=== PATIENT | male | born 1980 | race Caucasian/White ===

== ENCOUNTER 2017-04-06 14:27 | Emergency (ER) | payer MEDICAID ==
--- NOTE | 2017-04-06 15:05 | ED Physician Documentation ---
PD HPI MAJOR TRAUMA - Stated complaint Stated Complaint: CHEST LAC - Chief complaint Chief Complaint: Trauma Ch/Bk - History obtained from History obtained from: Patient - History of Present Illness Mechanism of injury: Other (He was chopping wood at home just prior to arrival and a piece of shrapnel came off the wedge and impacted him in the anterior chest just to the left of midline with a lot of bleeding, tetanus is up-to-date. ) Review of Systems Constitutional: reports: Reviewed and negative Nose: reports: Reviewed and negative Throat: reports: Reviewed and negative PD PAST MEDICAL HISTORY - Past Medical History Past Medical History: No Psych: ADD/ADHD - Past Surgical History Past Surgical History: Yes Ortho: Arthroscopic surgery - Present Medications Home Medications: Ambulatory Orders Medication Instructions Recorded Confirmed Cephalexin [Keflex] 500 mg PO QID #20 capsule 04/06/17 - Allergies Allergies/Adverse Reactions: Allergies Allergy/AdvReac Type Severity Reaction Status Date / Time No Known Drug Allergies Allergy Verified 05/04/16 20:02 - Social History Does the pt smoke?: Yes Smoking Status: Current every day smoker Does the pt drink ETOH?: No Does the pt have substance abuse?: No - Immunizations Immunizations are current?: Yes - POLST Patient has POLST: No PD ED PE NORMAL - Vitals Vital signs reviewed: Yes - General General: Alert and oriented X 3, No acute distress - Neck Neck: Supple, no meningeal sign, No bony TTP - Cardiac Cardiac: RRR, No murmur - Respiratory Respiratory: No respiratory distress, Clear bilaterally - Derm Derm: Other (There is a small puncture wound in the anterior chest wall just to the left of the upper sternum that is hemostatic with potential palpable foreign body on initial examination.) - Neuro Neuro: Alert and oriented X 3, Normal speech - Psych Psych: Normal mood, Normal affect Results - Vitals Vitals: Vital Signs - 24 hr 04/06/17 14:30 Temperature 36.9 C Heart Rate 93 Respiratory 22 Rate Blood Pressure 123/75 O2 Saturation 98 Oxygen O2 Source Room air - Rads (name of study) 2v chest Radiology: EMP read contemporaneously (5 x 3 mm metallic foreign body in the anterior chest wall) Procedures - Laceration (location) Chest wall Length in cm: 1 Wound type: Linear, Other (He was prepped and draped and locally infiltrated with buffered lidocaine. I spent probably 20-30 minutes attempting to locate and remove the metallic foreign body without success.) Wound Preparation: Chlorhexadine Skin layer closure: Nylon, Size #-0 - enter number (4-0), Sutures - enter # (3) Other: Patient tolerated well, No complications, Neurovascular intact, Tetanus UTD Complexity: Simple PD MEDICAL DECISION MAKING - ED course ED course: Attempts were made to remove the metallic foreign body however it was quite small and unable to be located during attempts and given its small size should not give him any chronic issues. Departure - Departure Disposition: 01 Home, Self Care Clinical Impression: Laceration - injury, Foreign body in subcutaneous tissue Condition: Good Record reviewed to determine appropriate education?: Yes Instructions: ED Foreign Body Soft Tissue Prescriptions: Cephalexin [Keflex] 500 mg PO QID #20 capsule Comments: The piece of metal is quite small, which explained why it was so hard to find. It should not give you any permanent issues but do mention this before any MRI exams. Return for signs of infection including redness, swelling, drainage, fever. Otherwise see her doctor in 10 days for suture removal.
[2017-04-06] MEDS ORDERED: BUFFERED LIDOCAINE 10 ML SYRINGE ONE (15:11)
--- NOTE | 2017-04-06 15:17 | XRAY Preliminary Report ---
Exam: XR Chest 2 View PA/LAT IMPRESSION: 1. No acute pulmonary consolidation. 2. Metal density projects over the medial left chest measuring 5 x 3 mm. This is difficult to localiz e in the lateral view although this may be an anterior foreign body considering the obscuring soft ti ssue density at this level. [facility] SITE ID: [id number]
--- NOTE | 2017-04-06 15:20 | XRAY Report ---
EXAM: CHEST RADIOGRAPHY EXAM DATE: 04/06/2017 03:03 PM. CLINICAL HISTORY: Hit in chest by metal object. COMPARISON: None. TECHNIQUE: 2 views. FINDINGS: Lungs/Pleura: No focal opacities evident. No pleural effusion. No pneumothorax. Normal volumes. Mediastinum: Heart and mediastinal contours are unremarkable. Other: Right nipple ring is present. Metal density projects over the medial left chest measuring 5 x 3 mm. IMPRESSION: 1. No acute pulmonary consolidation. 2. Metal density projects over the medial left chest measuring 5 x 3 mm. This is difficult to localiz e in the lateral view although this may be an anterior foreign body considering the obscuring soft ti ssue density at this level. [facility] Referring Provider Line: [phone] SITE ID: [id number]
[2017-04-06] MEDS ORDERED: CEPHALEXIN 250 MG CAPSULE PO STA (15:30)
[2017-04-06] MEDS ORDERED: CEPHALEXIN 250 MG CAPSULE PO ONE (15:41)
[2017-04-06 15:51] VITALS: BP 135/69
== END 2017-04-06 15:49 | disposition home or self-care (01) ==
LOC: ED 14:27
DX: S21.122A Laceration with foreign body of left front wall of thorax without penetration into thoracic cavity, initial encounter (principal); W20.8XXA Other cause of strike by thrown, projected or falling object, initial encounter; Y93.89 Activity, other specified; F17.200 Nicotine dependence, unspecified, uncomplicated
CPT/HCPCS: 12001; 71020; 99283; A9270

== ENCOUNTER 2017-04-17 23:36 | Emergency (ER) | payer MEDICAID ==
[2017-04-17 23:46] VITALS: BP 128/83
--- NOTE | 2017-04-17 23:57 | ED Physician Documentation ---
PD HPI WOUND RECHECK - Stated complaint Stated Complaint: SUTURE REMOVAL - Chief complaint Chief Complaint: General - Histroy obtained from History obtained from: Patient - History of Present Illness Location: Chest Associated symptoms: No: Fever, Redness, Swelling, Drainage Recently seen: Emergency Dept Review of Systems Constitutional: denies: Fever, Chills PD PAST MEDICAL HISTORY - Past Medical History Psych: ADD/ADHD - Past Surgical History Past Surgical History: Yes Ortho: Arthroscopic surgery - Present Medications Home Medications: Ambulatory Orders Medication Instructions Recorded Confirmed Cephalexin [Keflex] 500 mg PO QID #20 capsule 04/06/17 - Allergies Allergies/Adverse Reactions: Allergies Allergy/AdvReac Type Severity Reaction Status Date / Time No Known Drug Allergies Allergy Verified 05/04/16 20:02 - Social History Does the pt smoke?: Yes Smoking Status: Current every day smoker Does the pt drink ETOH?: No Does the pt have substance abuse?: No - Immunizations Immunizations are current?: Yes - POLST Patient has POLST: No PD ED PE NORMAL - Vitals Vital signs reviewed: Yes - General General: Alert and oriented X 3, No acute distress, Well developed/nourished - Respiratory Respiratory: Other (sternal chest area with healing wound, [address] No signs of infection. ) Results - Vitals Vitals: Vital Signs - 24 hr 04/17/17 23:43 Temperature 36.6 C Heart Rate 83 Respiratory 16 Rate Blood Pressure 128/83 H O2 Saturation 100 Oxygen O2 Source Room air PD MEDICAL DECISION MAKING - ED course Complexity details: considered differential (sutures removed by nursing without problems. ), d/w patient Departure - Departure Disposition: 01 Home, Self Care Clinical Impression: Encounter for removal of sutures Condition: Stable Record reviewed to determine appropriate education?: Yes Comments: Continue usual wound care until fully healed. Discharge Date/Time: 04/18/17 00:26
== END 2017-04-18 00:26 | disposition home or self-care (01) ==
LOC: ED 23:36
DX: S21.119D Laceration without foreign body of unspecified front wall of thorax without penetration into thoracic cavity, subsequent encounter (principal); X58.XXXD Exposure to other specified factors, subsequent encounter
CPT/HCPCS: 99283

== ENCOUNTER 2018-12-30 21:22 | Emergency (ER) | payer MEDICAID ==
[2018-12-30 21:43] VITALS: BP 129/80
--- NOTE | 2018-12-30 22:34 | ED Physician Documentation ---
History of Present Illness - Stated complaint Stated Complaint: RT ELBOW PAIN - Chief complaint Chief Complaint: General - History obtained from History obtained from: Patient - History of Present Illness Timing: Other (right elbow pain x 3 days) Pain level now: 3 Improved by: rest Worsened by: movement, palpation - Additonal information Additional information: patient's chief complaint is 3 days of right elbow pain, atraumatic. Gradual onset, constant, and steadily worsening. Pain and tenderness is worst at lateral aspect of right elbow. Pain radiates down radial aspect of FA to wrist but not to hand. Also worse with movement involving the right elbow. He also is concerned that metallic FB in his chest wall might have migrated, as he usually is able to palpate it but noticed recently he can no longer palpate it. He says there is a tentative plan to remove it under fluoroscopy at [facility]. Review of Systems Constitutional: denies: Fever Cardiac: denies: Chest pain / pressure Respiratory: denies: Dyspnea, Cough Skin: denies: Rash Musculoskeletal: reports: Extremity pain, Joint pain. denies: Neck pain, Back pain, Extremity swelling, Joint swelling Neurologic: denies: Focal weakness, Numbness PD PAST MEDICAL HISTORY - Past Medical History Past Medical History: Yes Psych: ADD/ADHD Musculoskeletal: Chronic back pain Other Past Medical History: Degenerative disk disease. - Past Surgical History Past Surgical History: Yes Ortho: Arthroscopic surgery - Present Medications Home Medications: Ambulatory Orders Medication Instructions Recorded Confirmed Ibuprofen 600 mg PO Q6HR PRN #20 tablet 12/30/18 - Allergies Allergies/Adverse Reactions: Allergies Allergy/AdvReac Type Severity Reaction Status Date / Time No Known Drug Allergies Allergy Verified 12/30/18 23:01 - Social History Does the pt smoke?: Yes Smoking Status: Current every day smoker Does the pt drink ETOH?: No Does the pt have substance abuse?: No - Immunizations Immunizations are current?: Yes - POLST Patient has POLST: No PD ED PE NORMAL - Vitals Vital signs reviewed: Yes - General General: Alert and oriented X 3, No acute distress, Well developed/nourished - Respiratory Respiratory: No respiratory distress, Clear bilaterally - Derm Derm: Normal color, Warm and dry, No rash - Extremities Extremities: No edema - Neuro Neuro: No motor deficit, No sensory deficit - Free text exam Free text exam: no chest wall tenderness. no visible or palpable mass/FB PD ED PE EXPANDED - Extremities Extremities: Tenderness (TTP directly over right lateral epicondyle. no swelling, no erythema, no abnormal tactile heat/warmth. ROM is intact in right elbow, although increased discomfort/pain with full extension and with supination (prefers to keep the elbow flexed and pronated)), Motor intact, Sensory intact, Vascular intact Results - Vitals Vitals: Vital Signs - 24 hr 12/30/18 21:38 Temperature 37.0 C Heart Rate 69 Respiratory 16 Rate Blood Pressure 129/80 O2 Saturation 98 Oxygen O2 Source Room air - Rads (name of study) chest xray Radiology: Prelim report reviewed, See rad report PD MEDICAL DECISION MAKING - ED course Complexity details: reviewed results, re-evaluated patient, considered differential, d/w patient Departure - Departure Disposition: 01 Home, Self Care Clinical Impression: Right elbow tendonitis Foreign body of chest wall Qualifiers: Encounter type: initial encounter Laterality: left Qualified Code(s): S20.352A - Superficial foreign body of left front wall of thorax, initial encounter Condition: Good Instructions: ED Epicondylitis Lateral Elbow Follow-Up: Óscar Hdez MD [Provider Admit Priv/Credential] - Prescriptions: Ibuprofen 600 mg PO Q6HR PRN #20 tablet PRN Reason: Pain Forms: Activity restrictions Discharge Date/Time: 12/31/18 00:03
--- NOTE | 2018-12-30 23:23 | XRAY Report ---
Reason: chest pain, FB Procedure Date: 12/30/2018 Accession Number: [id number] / [id number] Procedure: XR - Chest 2 View X-Ray CPT Code: 51326 FULL RESULT: EXAM: CHEST RADIOGRAPHY EXAM DATE: 12/30/2018 10:59 PM. CLINICAL HISTORY: Chest pain, foreign body. History of metal foreign body in chest. COMPARISON: CHEST 2 VIEW PA/LAT 04/06/2017 2:56 PM. TECHNIQUE: 2 views. FINDINGS: Lungs/Pleura: No focal opacities evident. No pleural effusion. No pneumothorax. Normal volumes. Mediastinum: Heart and mediastinal contours are unremarkable. Other: Small metallic density that projects at the left upper lobe medial aspect measuring 6 mm, appears unchanged from the prior, not definitely seen on the lateral view so the location is not certain. IMPRESSION: No acute cardiopulmonary disease seen. Small metallic density that projects at the left upper lobe medial aspect measuring 6 mm, appears unchanged from the prior, not definitely seen on the lateral view so the location is not certain. [facility]
[2018-12-30] MEDS ORDERED: IBUPROFEN 600 MG TABLET PO STA (23:50)
== END 2018-12-31 00:03 | disposition home or self-care (01) ==
LOC: ED 21:22
DX: M77.9 Enthesopathy, unspecified (principal); Z18.10 Retained metal fragments, unspecified; F17.200 Nicotine dependence, unspecified, uncomplicated
CPT/HCPCS: 71046; 99283; A9270

== ENCOUNTER 2019-01-21 08:10 | Emergency (ER) | payer MEDICAID ==
[2019-01-21 08:24] VITALS: BP 127/85
--- NOTE | 2019-01-21 08:32 | ED Physician Documentation ---
History of Present Illness - Stated complaint Stated Complaint: ARM PX - Chief complaint Chief Complaint: Ext Problem - History obtained from History obtained from: Patient - Additonal information Additional information: Patient is a right-handed 38-year-old male with history of right elbow tendinitis presenting with right wrist discomfort. 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 Patient sometimes notices a clicking noise with movement. Patient does report that he awoke this morning with numbness to his hand, which is now resolved. Patient does not believe that he slept in a strange position or on top of his arm/hand. Patient denies joint swelling, erythema, or other skin changes. No other inciting incident, injury, or trauma. No other improving or worsening factors noted. Review of Systems Skin: denies: Rash Musculoskeletal: reports: Extremity pain, Joint pain. denies: Joint swelling Neurologic: reports: Numbness. denies: Focal weakness PD PAST MEDICAL HISTORY - Past Medical History Past Medical History: Yes Psych: ADD/ADHD Musculoskeletal: Chronic back pain - Past Surgical History Past Surgical History: Yes Ortho: Arthroscopic surgery - Present Medications Home Medications: Ambulatory Orders Medication Instructions Recorded Confirmed No Known Home Medications 01/21/19 01/21/19 - Allergies Allergies/Adverse Reactions: Allergies Allergy/AdvReac Type Severity Reaction Status Date / Time No Known Drug Allergies Allergy Verified 01/21/19 08:24 - Social History Does the pt smoke?: Yes Smoking Status: Current every day smoker Does the pt drink ETOH?: No Does the pt have substance abuse?: No - Immunizations Immunizations are current?: Yes - POLST Patient has POLST: No PD ED PE NORMAL - Vitals Vital signs reviewed: Yes - General General: Alert and oriented X 3, No acute distress, Well developed/nourished - HEENT HEENT: Atraumatic, Moist mucous membranes - Cardiac Cardiac: Strong equal pulses, Other (Cap refill brisk) - Respiratory Respiratory: No respiratory distress - Derm Derm: Normal color, Warm and dry, No rash - Extremities Extremities: No deformity, No tenderness to palpate, No edema, Other (Right upper extremity without deformity, bony tenderness, change in sensation/strength/range of motion or other overlying skin changes or joint swelling) - Neuro Neuro: Alert and oriented X 3, No motor deficit, No sensory deficit - Psych Psych: Normal mood, Normal affect Results - Vitals Vitals: Vital Signs - 24 hr 01/21/19 08:11 Temperature 36.5 C Heart Rate 68 Respiratory 16 Rate Blood Pressure 127/85 H O2 Saturation 99 Oxygen O2 Source Room air PD MEDICAL DECISION MAKING - ED course Complexity details: reviewed old records, considered differential, d/w patient, d/w family ED course: Patient has history of right elbow tendinitis which has moderately improved since his last visit. Patient now complaining of right wrist pain without sensation loss, strength loss, range of motion change. No specific trauma and have low suspicion for bony abnormalities including fracture or dislocation. Offered x-ray, which patient declined.No sign of gout, joint infection, cellulitis, abscess, lymphangitis or other infectious properties. 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 Discussed recommendations, supportive cares, return precautions, and follow-up. Work note provided. Patient voiced understanding and is comfortable with discharge plan. Departure - Departure Disposition: 01 Home, Self Care Clinical Impression: Tendonitis Condition: Good Instructions: Tendonitis and Tenosynovitis Follow-Up: Óscar Hdez MD [Provider Admit Priv/Credential] - Comments: Recommend avoidance of manual labor and heavy lifting, as well as repetitive motions. Recommend ice, elevation and ibuprofen/Tylenol. Please follow-up with your primary care physician or orthopedic surgery. Return to ED sooner if experience new injury or worsening symptoms. Forms: Activity restrictions
== END 2019-01-21 08:38 | disposition home or self-care (01) ==
LOC: ED 08:10
DX: M77.9 Enthesopathy, unspecified (principal); M25.531 Pain in right wrist; F17.200 Nicotine dependence, unspecified, uncomplicated
CPT/HCPCS: 99282

== ENCOUNTER 2019-09-22 18:15 | Emergency (ER) | payer MEDICAID ==
[2019-09-22 18:24] VITALS: BP 135/82
[2019-09-22 18:44] LABS: BASOPHILS % (AUTO) 0.2 %; EOSINOPHILS # (AUTO) 0.3 10^3/uL (0.0-0.7); EOSINOPHILS % (AUTO) 2.5 %; HGB - HEMOGLOBIN 14.3 g/dL (14.0-18.0); LYMPHOCYTES % (AUTO) 18.7 %; MEAN CORPUSCULAR HEMOGLOBIN 30.6 pg (27.0-31.0); MEAN CORPUSCULAR HGB CONC 33.8 g/dL (32.0-36.0); MEAN CORPUSCULAR VOLUME 90.6 fL (80.0-94.0); MEAN PLATELET VOLUME 9.6 fL (7.4-11.4); MONOCYTES % (AUTO) 9.2 %; NEUTROPHILS # (AUTO) 7.5 10^3/uL (1.5-6.6); PLT - PLATELET COUNT 268 10^3/uL (130-450); RED BLOOD COUNT 4.67 10^6/uL (4.70-6.10); RED CELL DISTRIBUTION WIDTH 12.5 % (12.0-15.0); WHITE BLOOD COUNT 10.9 x10^3/uL (4.8-10.8)
[2019-09-22 19:03] LABS: ALBUMIN 4.5 g/dL (3.2-5.5); ALBUMIN/GLOBULIN RATIO 1.5 (1.0-2.2); BILIRUBIN,TOTAL 0.6 mg/dL (0.2-1.0); CALCIUM 9.3 mg/dL (8.5-10.3); CRP - C-REACTIVE PROTEIN 1.2 mg/dL (0-1.0); TOTAL PROTEIN 7.5 g/dL (6.7-8.2)
--- NOTE | 2019-09-22 19:49 | ED Physician Documentation ---
History of Present Illness - Stated complaint Stated Complaint: BILAT FOOT/LEG SWELLING,BRUISING - Chief complaint Chief Complaint: Ext Problem - History obtained from History obtained from: Patient, Family - History of Present Illness Timing: How many weeks ago (several) Pain level max: 3 Pain level now: 2 - Additonal information Additional information: Patient complains of swelling to the bilateral feet for the past several weeks. Also itching. Nothing makes it better or worse. 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 Review of Systems Constitutional: denies: Fever, Chills GI: denies: Vomiting PD PAST MEDICAL HISTORY - Past Medical History Past Medical History: Yes Psych: ADD/ADHD Musculoskeletal: Chronic back pain - Past Surgical History Past Surgical History: Yes Ortho: Arthroscopic surgery - Present Medications Home Medications: Ambulatory Orders Medication Instructions Recorded Confirmed Terbinafine [Lamisil] 250 mg PO DAILY #21 tablet 09/22/19 - Allergies Allergies/Adverse Reactions: Allergies Allergy/AdvReac Type Severity Reaction Status Date / Time No Known Drug Allergies Allergy Verified 09/22/19 18:20 - Social History Does the pt smoke?: Yes Smoking Status: Current every day smoker Does the pt drink ETOH?: No Does the pt have substance abuse?: No - Immunizations Immunizations are current?: Yes - POLST Patient has POLST: No PD ED PE NORMAL - Vitals Vital signs reviewed: Yes - General General: Alert and oriented X 3, No acute distress - HEENT HEENT: Moist mucous membranes - Neck Neck: Supple, no meningeal sign - Cardiac Cardiac: RRR - Respiratory Respiratory: No respiratory distress, Clear bilaterally - Derm Derm: Warm and dry - Extremities Extremities: Other (Macerated tissue between all the toes. Macular exanthem to the bilateral feet.) - Neuro Neuro: Alert and oriented X 3 Results - Vitals Vitals: Vital Signs - 24 hr 09/22/19 09/22/19 18:21 20:01 Temperature 36.7 C Heart Rate 98 Respiratory 16 17 Rate Blood Pressure 135/82 H O2 Saturation 97 Oxygen O2 Source Room air - Labs Labs: Laboratory Tests 09/22/19 09/22/19 09/22/19 18:41 18:41 18:41 WBC 10.9 H RBC 4.67 L Hgb 14.3 Hct 42.3 MCV 90.6 MCH 30.6 MCHC 33.8 RDW 12.5 Plt Count 268 MPV 9.6 Neut # (Auto) 7.5 H Lymph # (Auto) 2.0 [place] # (Auto) 1.0 Eos # (Auto) 0.3 Baso # (Auto) 0.0 Absolute Nucleated RBC 0.00 Nucleated RBC % 0.0 ESR 4 Sodium 138 Potassium 3.7 Chloride 102 Carbon Dioxide 28 Anion Gap 8.0 BUN 14 Creatinine 1.0 Estimated GFR (MDRD) 83 L Glucose 119 H Calcium 9.3 Total Bilirubin 0.6 AST 19 ALT 21 Alkaline Phosphatase 80 C-Reactive Protein 1.2 H Total Protein 7.5 Albumin 4.5 Globulin 3.0 Albumin/Globulin Ratio 1.5 Lipase 33 PD MEDICAL DECISION MAKING - ED course Complexity details: considered differential, d/w patient ED course: Patient with what appears to be bilateral tinea pedis. Will place on terbinafine. We will have him dry his boots nightly and change his socks at least once during the day. Patient counseled regarding signs and symptoms for which I believe and urgent re-evaluation would be necessary. Patient with good understanding of and agreement to plan and is comfortable going home at this time This document was made in part using voice recognition software. While efforts are made to proofread this document, sound alike and grammatical errors may occur. No secondary infection Departure - Departure Disposition: 01 Home, Self Care Clinical Impression: Tinea pedis Qualifiers: Laterality: bilateral Qualified Code(s): B35.3 - Tinea pedis Condition: Good Instructions: ED Fungal Infec Athlete Foot Follow-Up: your,doctor in 2 weeks for re-eval [Other] Prescriptions: Terbinafine [Lamisil] 250 mg PO DAILY #21 tablet Comments: Take all the medication until gone. Return if you worsen. This should improve over the next 2 to 3 weeks. You need to change your socks during the workday. Dry your boots as best as possible at night. You can also use medicated foot powder to help keep the area dry. Discharge Date/Time: 09/22/19 20:02
== END 2019-09-22 20:02 | disposition home or self-care (01) ==
LOC: ED 18:15
DX: B35.3 Tinea pedis (principal); F17.200 Nicotine dependence, unspecified, uncomplicated
CPT/HCPCS: 36415; 80053; 83690; 85025; 85651; 86140; 99283; 99284

== ENCOUNTER 2023-07-28 03:29 | Emergency (ER) | payer SELFPAY ==
[2023-07-28 03:40] VITALS: BP 137/84; O2SAT 100
--- NOTE | 2023-07-28 03:40 | ED Physician Documentation ---
PD HPI LOWER EXT INJURY - Stated complaint Stated Complaint: RT ANKLE PX - Chief complaint Chief Complaint: Ext Problem - History obtained from History obtained from: Patient - Additional information Additional information: HPI from patient. Patient c/o sudden onset right ankle pain when he stepped out of his trailer to walk his dog; he did not realize the stairs were not extended and thus he landed on inverted right ankle. Denies other injury. Pain is worse with palpation, movement, weight-bearing although he is able to partially weight-bear. Review of Systems Musculoskeletal: reports: Joint pain, Joint swelling, Pain with weight bearing Neurologic: denies: Focal weakness, Numbness PD PAST MEDICAL HISTORY - Past Medical History Cardiovascular: Other Respiratory: None Neuro: None Endocrine/Autoimmune: None GI: None : None HEENT: None Psych: ADD/ADHD Musculoskeletal: Chronic back pain Derm: None - Past Surgical History Past Surgical History: Yes Ortho: Arthroscopic surgery - Present Medications Home Medications: Ambulatory Orders Medication Instructions Recorded Confirmed HYDROcod/ACETAM 5/325 [[place] 5/325] 1 - 2 tablet PO Q6H PRN #14 tablet 07/28/23 - Allergies Allergies/Adverse Reactions: Allergies Allergy/AdvReac Type Severity Reaction Status Date / Time No Known Drug Allergies Allergy Verified 09/22/19 18:20 - Social History Does the pt smoke?: Yes Smoking Status: Current every day smoker Does the pt drink ETOH?: No Does the pt have substance abuse?: No - Immunizations Immunizations are current?: Yes - POLST Patient has POLST: No PD ED PE NORMAL - Vitals Vital signs reviewed: Yes - General General: Alert and oriented X 3, No acute distress, Well developed/nourished - Neuro Neuro: No motor deficit, No sensory deficit PD ED PE EXPANDED - Extremities Extremities: Tenderness, Limited ROM, Swelling, Other (TTP, swelling lateral aspect of right ankle. ). No: Deformity, Bruising Results - Vitals Vitals: Vital Signs - 24 hr 07/28/23 03:36 Temperature 36.9 C Heart Rate 96 Respiratory 20 Rate Blood Pressure 137/84 H O2 Saturation 100 Oxygen O2 Source Room air - Rads (name of study) right ankle xrays Relevant Findings:: Prelim report reviewed, EMP independent interpretation of test (I reviewed these images and my interpretation is no evidence of fracture, disclocation; lateral soft tissue swelling noted), See rad report PD Medical Decision Making - ED course Complexity details: considered differential, d/w patient ED course: No evidence of fracture, dislocation on plain-film xrays right ankle. Obvious swelling of lateral aspect of right ankle on exam. He is provided crutches and an air-cast ankle splint is placed. Given 400mg PO ibuprofen and 2 tablets 5/325 vicodin. Results d/w patient, advised to seek follow up with PCP within 1 week and minimize weight-bearing and use air-cast splint for at least one week. Provided rx for vicodin. Return precautions discussed. Departure - Departure Disposition: Home, Self Care Clinical Impression: Right ankle sprain Qualifiers: Encounter type: initial encounter Involved ligament of ankle: unspecified ligament Qualified Code(s): S93.401A - Sprain of unspecified ligament of right ankle, initial encounter Condition: Good Instructions: ED Sprain Ankle W X Ray Prescriptions: HYDROcod/ACETAM 5/325 [[place] 5/325] 1 - 2 tablet PO Q6H PRN #14 tablet PRN Reason: Pain Comments: There is no evidence of any broken bones on the ankle x-rays. Use the crutches and the splint for the next 5 to 7 days to minimize weightbearing; this will speed up the healing process. If it still hurts when you weight-bear after 1 week, you can continue to use both crutches and a splint. Follow-up with your primary care provider within 1 week for reevaluation of the injury. I have electronically submitted a prescription for vicodin (opiate/narcotic pain medication) to the [facility] pharmacy in [place]. I am prescribing a short course of narcotic pain medication for you. These are potentially dangerous and addictive medications that should be used carefully. These medications may constipate you. Take an dwti-sol-sbqyllv stool softener (docusate) twice daily with plenty of water while taking these medications. If you go 24 hours without a bowel movement, take cuze-zrr-dvavigr miralax, per package instructions. Do not drink or drive while taking these medications. If you received narcotic or sedating medications while in the emergency department, do not drive for 24 hours. Store this medication in a safe, secure place and out of reach of children. It is a violation of federal law to give or sell this medication to another person or to use in a manner other than prescribed. The ED will not refill narcotic prescriptions, including prescriptions lost or stolen. To dispose of unwanted medications: 1. [facility] [address] in [place] has a medication drop box. They accept prescription medications (in pill form) Friday through Friday 9:00 a.m. to 5:00 p.m. 2. The [facility] [employer] accepts prescription medications (in pill form only) for disposal year round. Call for more information. 3. Contact the [facility] for the next [facility] sponsored prescription drug collection event. , [phone], or [phone]; Forms: PCP List Discharge Date/Time: 07/28/23 06:00
[2023-07-28] MEDS ORDERED: IBUPROFEN 400 MG TABLET PO STA (05:14)
[2023-07-28] MEDS ORDERED: HYDROcod/ACETAM 5/325 MG TABLET PO STA (05:14)
--- NOTE | 2023-07-28 10:11 | XRAY Report ---
PROCEDURE: Ankle 3+V RT INDICATIONS: right ankle injury TECHNIQUE: 3 views of the ankle were acquired. COMPARISON: None. FINDINGS: Bones: There is faint visualization of a 3 mm avulsion fracture fragment distal to the lateral malle olus. No additional fractures can be seen. The talar dome demonstrates an unremarkable appearance. Ankl e mortise is normally aligned. No suspicious bony lesions. Soft tissues: Soft tissue swelling is seen laterally. IMPRESSION: 3 mm avulsion fracture fragment involving the distal aspect of the lateral malleolus. Note: This case (including difference between this final report and the preliminary report) discussed by telephone with nurse Fredy at 10:07 AM on 07/28/2023. He will discuss the case with Dr. Monge. Reviewed by: Shadi Blankenship MD on 07/28/2023 9:10 AM [facility] Approved by: Shadi Blankenship MD on 07/28/2023 9:10 AM [facility] Station ID: [id number]
--- NOTE | 2023-07-28 10:41 | ED Physician Documentation ---
ED Addendum - Addendum Addendum: 07/28/23 10:39 Revision in the radiology report this morning by second review by Dr. Jayro PRESCOTT I: The previous reported no fracture report is amended to say a 2 to 3 mm avulsion fracture at the distal lateral malleolus. Did call the patient at home and advised him of the change in the x-ray report. The location and size of the avulsion is such that it would not really change the treatment or doing as it would still be appropriate with the Aircast and crutches but to expect a bit longer and healing process as this would signify a partial tear of the ligament with the avulsion. Continue with the previous instructions and also follow-up. The patient expressed understanding of the findings.
== END 2023-07-28 06:00 | disposition home or self-care (01) ==
LOC: ED 03:29
DX: S93.401A Sprain of unspecified ligament of right ankle, initial encounter (principal); X50.1XXA Overexertion from prolonged static or awkward postures, initial encounter; Y92.029 Unspecified place in mobile home as the place of occurrence of the external cause; F17.200 Nicotine dependence, unspecified, uncomplicated
CPT/HCPCS: 73610; 99283; 99284; A9270

== ENCOUNTER 2024-01-27 23:53 | Inpatient (IN) | payer MEDICAID ==
[2024-01-28 00:42] LABS: BASOPHILS % (AUTO) 0.1 %; EOSINOPHILS # (AUTO) 0.2 10^3/uL (0.0-0.7); EOSINOPHILS % (AUTO) 2.2 %; HCT - HEMATOCRIT 49.5 % (42.0-52.0); HGB - HEMOGLOBIN 16.2 g/dL (14.0-18.0); LYMPHOCYTES # (AUTO) 1.1 10^3/uL (1.5-3.5); LYMPHOCYTES % (AUTO) 12.3 %; MEAN CORPUSCULAR HEMOGLOBIN 28.8 pg (27.0-31.0); MEAN CORPUSCULAR HGB CONC 32.7 g/dL (32.0-36.0); MEAN CORPUSCULAR VOLUME 87.9 fL (80.0-94.0); MEAN PLATELET VOLUME 9.3 fL (7.4-11.4); MONOCYTES # (AUTO) 0.5 10^3/uL (0.0-1.0); MONOCYTES % (AUTO) 5.4 %; NEUTROPHILS # (AUTO) 7.3 10^3/uL (1.5-6.6); NEUTROPHILS % (AUTO) 79.7 %; PLT - PLATELET COUNT 297 10^3/uL (130-450); RED BLOOD COUNT 5.63 10^6/uL (4.70-6.10); RED CELL DISTRIBUTION WIDTH 12.2 % (12.0-15.0); WHITE BLOOD COUNT 9.2 x10^3/uL (4.8-10.8)
[2024-01-28] MEDS ORDERED: iohexoL-300 100 ML VIAL ONE (01:04)
[2024-01-28] MEDS: SODIUM CHLORIDE 0.9% 1,000 ML IV STA (01:05)
[2024-01-28] MEDS: MORPHINE 2 MG/ML CARPUJECT IVP STA (01:06)
[2024-01-28] MEDS: ONDANSETRON 4 MG/2 ML VIAL IVP STA (01:06)
[2024-01-28 01:13] LABS: ALBUMIN 4.5 g/dL (3.2-5.5); ALBUMIN/GLOBULIN RATIO 1.4 (1.0-2.2); BILIRUBIN,TOTAL 0.5 mg/dL (0.2-1.0); CALCIUM 9.7 mg/dL (8.5-10.3); CREATININE 1.1 mg/dL (0.6-1.3); POTASSIUM 3.7 mmol/L (3.5-4.5); TOTAL PROTEIN 7.7 g/dL (6.4-8.9)
[2024-01-28] MEDS: iohexoL-300 100 ML VIAL IVP ONE (01:30)
--- NOTE | 2024-01-28 01:49 | CT Report ---
PROCEDURE: Abdomen/Pelvis W INDICATIONS: generalized abd pain/worst in lower abd CONTRAST: Omni 300, 100mls TECHNIQUE: After the administration of intravenous contrast, a CT scan of the abdomen and pelvis was performed. Images were recorded and evaluated at appropriate window settings. Reformats: coronal and sagittal. F or radiation dose reduction, the following was used: automated exposure control, adjustment of mA and /or kV according to patient size. COMPARISON: None. FINDINGS: Image quality: Diagnostic Lower chest: Basal atelectasis/scarring. Normal heart size where visualized Liver: Subcentimeter lesions are too small characterize, usually cysts. Gallbladder and biliary system: Unremarkable, nondilated Pancreas: No ductal dilation Spleen: Nonenlarged Adrenals: No discrete nodules Kidneys: No solid mass or hydronephrosis Vessels and lymph nodes: The main portal vein is patent. No abdominal aortic aneurysm. No pathologic lymph nodes by size criteria. Bowel and peritoneum: Moderate to large gastric distention. There are small bowel obstruction. Suspec darshana transition to undistended bowel is seen in the mid abdomen, likely in the ileum Long, nondilated appendix. Small amount of pelvic free fluid. Body wall: Unremarkable Pelvis: Bladder is unremarkable. Reproductive organs are not well eval on this study, overall unremar kable. There is a small amount pelvic free fluid. Bones: No acute or suspicious osseous finding. IMPRESSION: Small bowel obstruction, with likely transition in the central abdomen within the ileum. Small amount of pelvic free fluid, possibly reactive. Other findings above. Reviewed by: Jayro Cantu MD on 01/28/2024 1:47 AM PDT Approved by: Jayro Cantu MD on 01/28/2024 1:47 AM PDT Station ID: [id number]
--- NOTE | 2024-01-28 02:23 | ED Physician Documentation ---
PD HPI ABD PAIN - Stated complaint Stated Complaint: LOWER BACK PX - Chief complaint Chief Complaint: Abd Pain - History obtained from History obtained from: Patient - Additional information Additional information: Patient is a 43-year-old male, history of methamphetamine abuse (last use was 3 to 4 days ago), presenting for evaluation of abdominal pain with nausea starting today. Patient reports generalized discomfort to the abdomen with decreased bowel movements. Denies prior abdominal surgeries. Nothing makes his symptoms better or worse. Has had prior kidney infections and so was concerned about that. No fever, chest pain or difficulty breathing. Review of Systems Constitutional: denies: Fever Cardiac: denies: Chest pain / pressure Respiratory: denies: Dyspnea GI: reports: Abdominal Pain. denies: Vomiting, Diarrhea PD PAST MEDICAL HISTORY - Past Medical History Past Medical History: Yes Cardiovascular: Other Respiratory: None Neuro: None Endocrine/Autoimmune: None GI: None : None HEENT: None Psych: ADD/ADHD Musculoskeletal: Chronic back pain Derm: None - Past Surgical History Past Surgical History: Yes Ortho: Arthroscopic surgery - Present Medications Home Medications: Ambulatory Orders Medication Instructions Recorded Confirmed No Known Home Medications 01/28/24 01/28/24 - Allergies Allergies/Adverse Reactions: Allergies Allergy/AdvReac Type Severity Reaction Status Date / Time No Known Drug Allergies Allergy Verified 01/28/24 00:14 - Social History Does the pt smoke?: Yes Smoking Status: Current every day smoker Does the pt drink ETOH?: No Does the pt have substance abuse?: No - Immunizations Immunizations are current?: Yes - POLST Patient has POLST: No PD ED PE NORMAL - General General: Alert and oriented X 3, No acute distress, Well developed/nourished - HEENT HEENT: Atraumatic - Neck Neck: Supple, no meningeal sign - Cardiac Cardiac: RRR, Strong equal pulses - Respiratory Respiratory: No respiratory distress, Clear bilaterally - Abdomen Abdomen: Soft, Non distended, Other (Hypoactive bowel sounds, generalized tenderness) - Derm Derm: Warm and dry - Neuro Neuro: Normal speech Results - Vitals Vitals: Vital Signs - 24 hr 01/28/24 01/28/24 01/28/24 00:08 01:50 03:00 Temperature 36.6 C 36 C L 36.1 C L Heart Rate 83 79 75 Respiratory 19 16 16 Rate Blood Pressure 127/73 121/68 123/83 H O2 Saturation 98 98 96 Oxygen O2 Source Room air - Labs Labs: Laboratory Tests 01/28/24 01/28/24 00:28 00:28 WBC 9.2 RBC 5.63 Hgb 16.2 Hct 49.5 MCV 87.9 MCH 28.8 MCHC 32.7 RDW 12.2 Plt Count 297 MPV 9.3 Neut # (Auto) 7.3 H Lymph # (Auto) 1.1 L [place] # (Auto) 0.5 Eos # (Auto) 0.2 Baso # (Auto) 0.0 Absolute Nucleated RBC 0.00 Nucleated RBC % 0.0 Sodium 136 Potassium 3.7 Chloride 98 L Carbon Dioxide 32 Anion Gap 6.0 BUN 12 Creatinine 1.1 Estimated GFR (MDRD) 73 L Glucose 153 H Calcium 9.7 Total Bilirubin 0.5 AST 13 ALT 19 Alkaline Phosphatase 87 Total Protein 7.7 Albumin 4.5 Globulin 3.2 Albumin/Globulin Ratio 1.4 Lipase 16 PD Medical Decision Making - ED course Complexity details: reviewed results, re-evaluated patient, d/w patient ED course: Patient is a 43-year-old presenting for evaluation of abdominal pain with nausea. Decreased bowel movements recently. No prior abdominal surgeries. Generalized abdominal tenderness noted on exam. Vital signs are stable. CBC, chemistries reviewed. CT scan of the abdomen pelvis was obtained with findings concerning for small bowel obstruction with significant distention of the stomach. General surgery consulted. Patient received IV morphine for pain control along with fluids and Zofran and is starting to feel better but continues to have tenderness so NG was placed with significant output. Hospitalist to admit. 0212 - Discussed with general surgeon, Dr. Ramirez. Recommends NG if stomach is distended on imaging, bowel rest and he will consult today. Departure - Departure Disposition: [facility] DC/Xfer Clinical Impression: SBO (small bowel obstruction) Condition: Stable Forms: PCP List
[2024-01-28] MEDS ORDERED: LIDOCAINE JELLY 2% 6 ML JEL.PF.APP ONE (02:37)
[2024-01-28] MEDS: HYDROmorphone 0.5 MG/0.5 ML SYRINGE IVP STA (03:49)
--- NOTE | 2024-01-28 03:58 | HISTORY & PHYSICAL EXAMINATION ---
Chief Complaint - Chief Complaint Chief Complaint: abdominal pain History of Present Illness - Admitted From Admitted From:: home - History Obtained From Records Reviewed: yes History obtained from: patient, his partner, chart review, ER staff Exam Limitations: telemedicine - History of Present Illness HPI Comment/Other: Mr Tran is a 43 yo M who presents for evaluation of abdominal pain. No pertinent past medical or surgical history. Onset of pain ~8 am yesterday, hist last meal was at 11 am. He has had progressive abdominal sharp/stabbing pain all day, denies any nausea or vomiting. Last BM was the day prior on 01/25, has been passing gas today. Denies any prior history of SBO, has not had any prior abdominal surgeries. Denies fevers, has cold sweats. Denies cp, sob, cough, dysuria, hematuria. Denies swelling in arms/legs. Denies headaches or dizziness. Pain is 10/10 intensity, now improving he has just received IV dilaudid. Denies alcohol use, smokes 1/2 PPD cigarettes. 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 History - Past Medical History Cardiovascular: reports: Other Respiratory: reports: None Neuro: reports: None Endocrine/Autoimmune: reports: None GI: reports: None : reports: None HEENT: reports: None Psych: reports: ADD/ADHD Musculoskeletal: reports: Chronic back pain Derm: reports: None MRSA Hx?: No - Past Surgical History Ortho: reports: Arthroscopic surgery - POLST Patient has POLST: No Meds/Allgy - Home Medications Home Medications: Ambulatory Orders Medication Instructions Recorded Confirmed No Known Home Medications 01/28/24 01/28/24 - Allergies Allergies/Adverse Reactions: Allergies Allergy/AdvReac Type Severity Reaction Status Date / Time No Known Drug Allergies Allergy Verified 01/28/24 00:14 Review of Systems - Constitutional Constitutional: reports: Chills (cold sweats), Malaise, Poor appetite. denies: Fatigue, Fever - Cardiovascular Cariovascular: denies: Palpitations, Chest pain, Syncope - Respiratory Respiratory: denies: Cough, Sputum production - Gastrointestinal Gastrointestinal: reports: Abdominal pain, Abdominal distention, Nausea. denies: Rectal bleeding, Vomiting - Genitourinary Genitourinary: denies: Dysuria, Frequency, Hematuria - Integumentary Integumentary: reports: Rash, Pruritis - Neurological Neurological: denies: General weakness, Focal weakness, Headache - All Other Systems All Other Systems: reports: Reviewed and negative Exam - Vital Signs Reviewed Vital Signs: Yes Vital Signs: Vital Signs x48h Temp Pulse Resp BP Pulse Ox 01/28/24 03:00 36.1 C L 75 16 123/83 H 96 01/28/24 01:50 36 C L 79 16 121/68 98 01/28/24 00:08 36.6 C 83 19 127/73 98 - Physical Exam General Appearance: positive: Alert, Moderate distress Cardiovascular: positive: Regular rate & rhythm (on tele) Abdomen: positive: Other (appears distended, + tender to palpation with patient) Skin: positive: Color nml, No rash Neurologic/Psychiatric: positive: Oriented x3, Mood/affect nml Conclusion/Plan - Lab Results Lab results reviewed: Yes Fish Bones: 01/28/24 00:28 01/28/24 00:28 - Diagnostic Imaging Results Diagnostic Imaging Results: positive: Final report reviewed - Other Other Results/Comments: Small bowel obstruction -No prior history of SBO or abdominal surgeries -CT abdomen reviewed -General surgery consulted in ER, follow up recommendations -NG tube to LIS -Pain control IV dilaudid PRN -Antiemetics IV Zofran PRN -NPO Substance use history -Tobacco use, 1/2 PPD, declined nicotine patch -Methamphetamine use, last use 4 days ago -Cessation counseling when medically stable Full code DVT ppx: SCDs pending surgery consult Telemedicine Consult Details - Provider Location & Consult Time Telemedicine consultation conducted via videoconferencing?: Yes List names and roles of persons who participated in consult:: patient, his partner, RN, ER staff Telemedicine provider location:: [place]
[2024-01-28] MEDS ORDERED: ONDANSETRON 4 MG/2 ML VIAL IVP PRN (04:04)
[2024-01-28] MEDS: SODIUM CHLORIDE 0.9% 1,000 ML IV SCH (05:19)
[2024-01-28] MEDS: HYDROmorphone 0.5 MG/0.5 ML SYRINGE IVP PRN (05:26)
--- NOTE | 2024-01-28 09:05 | PHARMACY PROGRESS NOTE ---
- Best Possible Medication History Admit Date and Time: 01/28/24 0404 Processed by: Nursing Medications reviewed in ED?: Yes Medication History completed: Yes Patient Interview: Completed Secondary Source(s): Insurance records As the person ultimately responsible for medication therapy, providers are able to order a medication from an existing home medication list in [facility] via the "Reconcile Routine" prior to Confirmation of that medication by community support professional. Such practice is discouraged except when the physician, in their clinical judgment, deems that a medical need exists for a medication without regard to previous use.
--- NOTE | 2024-01-28 09:06 | PROVIDER PROGRESS NOTE ---
Subjective - Prog Note Date Prog Note Date: 01/28/24 Prog Note Time: 09:04 - Subjective Pt reports feeling: Improved Subjective: Has never had symptoms like this before. Started to have pain yesterday afternoon and presented to the emergency department. No history of abdominal surgery he is healthy. Smokes a half a pack of cigarettes per day. Stopped using methamphetamine 4 days ago and is in a treatment program. Family medical history significant for mother and maternal grandmother with rectal cancer. He has never had a colonoscopy as he has never had a reason to do so. As the morning has progressed he has begun to pass gas and feels like he might need to have a bowel movement. His abdominal pain has continued to improve Current Medications - Current Medications Current Medications: Medications Hydromorphone HCl (Hydromorphone 0.5 Mg/0.5 Ml Syringe) 0.5 mg IVP Q2H PRN PRN Reason: Pain 8 to 10 Last Admin: 01/28/24 05:26 Dose: 0.5 mg Ondansetron HCl (Ondansetron 4 Mg/2 Ml Vial) 4 mg IVP Q6HR PRN PRN Reason: Nausea / Vomiting Objective - Vital Signs/Intake & Output Vital Signs: Vital Signs x48h Temp Pulse Pulse Pulse Resp BP BP 01/28/24 08:00 36.5 C 67 20 109/77 01/28/24 05:02 36.6 C 62 16 01/28/24 03:00 36.1 C L 75 16 123/83 H 01/28/24 01:50 36 C L 79 16 121/68 BP Pulse Ox 01/28/24 08:00 96 01/28/24 05:02 132/87 H 97 01/28/24 03:00 96 01/28/24 01:50 98 Intake & Output: Intake & Output 01/25/24 01/26/24 01/27/24 01/28/24 23:59 23:59 23:59 23:59 Intake Total 1000 Balance 1000 - Objective General Appearance: positive: No acute distress, Alert Eyes Bilateral: positive: Normal inspection ENT: positive: ENT inspection nml Neck: positive: Nml inspection Respiratory: positive: Breath sounds nml Cardiovascular: positive: Regular rate & rhythm Abdomen: positive: No distention. negative: Tenderness Back: positive: Nml inspection Skin: positive: Color nml Extremities: positive: Non-tender Neurologic/Psychiatric: positive: Oriented x3 - Lab Results Fish Bones: 01/28/24 00:28 01/28/24 00:28 Other Labs: Lab Results x24hrs 01/28/24 01/28/24 Range/Units 00:28 00:28 WBC 9.2 (4.8-10.8) x10^3/uL RBC 5.63 (4.70-6.10) 10^6/uL Hgb 16.2 (14.0-18.0) g/dL Hct 49.5 (42.0-52.0) % MCV 87.9 (80.0-94.0) fL MCH 28.8 (27.0-31.0) pg MCHC 32.7 (32.0-36.0) g/dL RDW 12.2 (12.0-15.0) % Plt Count 297 (130-450) 10^3/uL MPV 9.3 (7.4-11.4) fL Neut # (Auto) 7.3 H (1.5-6.6) 10^3/uL Lymph # (Auto) 1.1 L (1.5-3.5) 10^3/uL [place] # (Auto) 0.5 (0.0-1.0) 10^3/uL Eos # (Auto) 0.2 (0.0-0.7) 10^3/uL Baso # (Auto) 0.0 (0.0-0.1) 10^3/uL Absolute Nucleated RBC 0.00 x10^3/uL Nucleated RBC % 0.0 /100WBC Sodium 136 (135-145) mmol/L Potassium 3.7 (3.5-4.5) mmol/L Chloride 98 L (101-111) mmol/L Carbon Dioxide 32 (21-32) mmol/L Anion Gap 6.0 (6-13) BUN 12 (6-20) mg/dL Creatinine 1.1 (0.6-1.3) mg/dL Estimated GFR (MDRD) 73 L (>89) Glucose 153 H (74-104) mg/dL Calcium 9.7 (8.5-10.3) mg/dL Total Bilirubin 0.5 (0.2-1.0) mg/dL AST 13 (10-42) IU/L ALT 19 (10-60) IU/L Alkaline Phosphatase 87 (42-121) IU/L Total Protein 7.7 (6.4-8.9) g/dL Albumin 4.5 (3.2-5.5) g/dL Globulin 3.2 (2.1-4.2) g/dL Albumin/Globulin Ratio 1.4 (1.0-2.2) Lipase 16 (11-82) U/L - Diagnostic Imaging Diagnostic Imaging Results: positive: Final report reviewed Diagnostic Imaging Comments: Small bowel obstruction with transition in the central abdomen. Reactive pelvic free fluid is present. ABX Reporting Has patient been on IV antibiotics over the past 48 hours?: No Assessment/Plan - Problem List (1) SBO (small bowel obstruction) Impression: Discussed with Dr. Ramirez of general surgery. He would like to treat the patient conservatively with removal of the NG tube later in the day with a p.o. trial. Patient is much improved after NG decompression. (2) Substance abuse in remission Impression: He is on his fifth day clean from meth. He is enrolled in outpatient treatment program. No history of IVDU. (3) Tobacco dependence Impression: Half pack per day smoker. Denies need for nicotine patch while admitted.
[2024-01-28] MEDS: SODIUM CHLORIDE FLUSH 0.9% 10 ML SYRINGE IVP SCH (09:38)
--- NOTE | 2024-01-28 10:30 | CONSULTATION NOTE ---
Referring Provider Consult Date: 01/28/24 Chief Complaint - Chief Complaint Chief Complaint: abdominal pain History of Present Illness - History Obtained From Records Reviewed: yes History obtained from: pt Exam Limitations: none - History of Present Illness HPI Comment/Other: couple days of progressive abdominal pain. improved this am. passing gas per rectum this am. no prior abdominal surgery History - Past Medical History Cardiovascular: reports: Other Respiratory: reports: None Neuro: reports: None Endocrine/Autoimmune: reports: None GI: reports: None : reports: Kidney stones HEENT: reports: None Psych: reports: ADD/ADHD Musculoskeletal: reports: Chronic back pain Derm: reports: None MRSA Hx?: No - Past Surgical History Ortho: reports: Arthroscopic surgery - POLST Patient has POLST: No Meds/Allgy - Home Medications Home Medications: Ambulatory Orders Medication Instructions Recorded Confirmed No Known Home Medications 01/28/24 01/28/24 - Allergies Allergies/Adverse Reactions: Allergies Allergy/AdvReac Type Severity Reaction Status Date / Time No Known Drug Allergies Allergy Verified 01/28/24 00:14 Review of Systems - Other Findings Other Findings: no recent prior similar symptoms. had similar gi illness as a child 10 pt ros as above otherwise unremarkable Exam - Vital Signs Reviewed Vital Signs: Yes Vital Signs: Vital Signs x48h Temp Pulse Pulse Pulse Resp BP BP 01/28/24 08:00 36.5 C 67 20 109/77 01/28/24 05:02 36.6 C 62 16 01/28/24 03:00 36.1 C L 75 16 123/83 H BP Pulse Ox 01/28/24 08:00 96 01/28/24 05:02 132/87 H 97 01/28/24 03:00 96 - Physical Exam General Appearance: positive: No acute distress, Alert Eyes Bilateral: positive: PERRL, EOMI ENT: positive: No signs of dehydration Neck: positive: No JVD Respiratory: positive: No respiratory distress Abdomen: positive: Other (minimal distension and ngt thin nearly clear) Conclusion/Plan - Problem List (1) SBO (small bowel obstruction) Conclusion/Plan: more likely has an ileus than a bowel obstruction. no history of abdominal surgery. unlikely has adhesive disease. gastrograffin study not recommended. he is already improving. likely can remove ngt this evening or in am tomorrow if he continues to have fla tus and minimal ngt output. - Lab Results Lab results reviewed: Yes Fish Bones: 01/28/24 00:28 01/28/24 00:28 - Diagnostic Imaging Results Diagnostic Imaging Results: positive: Read independently (no bowel obstruction. ileus present)
[2024-01-28] MEDS: PANTOPRAZOLE 40 MG VIAL IVP SCH (12:37)
[2024-01-28] MEDS: FAMOTIDINE 20 MG/2 ML VIAL IVP SCH (12:37)
[2024-01-28 14:06] LABS: BILIRUBIN,URINE NEGATIVE (NEGATIVE); GLUCOSE, URINE (UA) NEGATIVE (NEGATIVE); KETONES,URINE (UA) NEGATIVE (NEGATIVE); LEUKOCYTE ESTERASE, URINE NEGATIVE (NEGATIVE); NITRITE,URINE NEGATIVE (NEGATIVE); OCCULT BLOOD,URINE TRACE-LYSE (NEGATIVE); PH,URINE 5.5 PH (5.0-7.5); PROTEIN,URINE NEGATIVE (NEGATIVE); UROBILINOGEN,URINE 0.2 (NORMAL) E.U./dL (NORMAL)
[2024-01-28 14:08] LABS: CLARITY,URINE CLEAR (CLEAR)
[2024-01-28 14:18] LABS: AMPHETAMINE SCREEN,URINE POSITIVE (NEGATIVE); BARBITURATE SCREEN,UR NEGATIVE (NEGATIVE); BENZODIAZEPINES SCREEN, URINE NEGATIVE (NEGATIVE); BUPRENORPHINE SCREEN, URINE NEGATIVE (NEGATIVE); COCAINE SCREEN URINE NEGATIVE (NEGATIVE); METHADONE SCREEN, URINE NEGATIVE (NEGATIVE); METHAMPHETAMINES SCREEN, URINE POSITIVE (NEGATIVE); OPIATE SCREEN, URINE POSITIVE (NEGATIVE); OXYCODONE SCREEN, URINE NEGATIVE (NEGATIVE); THC CANNABINOID SCREEN, URINE NEGATIVE (NEGATIVE); TRICYCLIC ANTIDEPRESSANT,URINE NEGATIVE (NEGATIVE)
[2024-01-28] MEDS: SODIUM CHLORIDE FLUSH 0.9% 10 ML SYRINGE IVP PRN (20:14)
[2024-01-29 05:25] LABS: BASOPHILS % (AUTO) 0.3 %; EOSINOPHILS # (AUTO) 0.4 10^3/uL (0.0-0.7); EOSINOPHILS % (AUTO) 7.1 %; HCT - HEMATOCRIT 40.1 % (42.0-52.0); LYMPHOCYTES # (AUTO) 2.2 10^3/uL (1.5-3.5); LYMPHOCYTES % (AUTO) 35.7 %; MEAN CORPUSCULAR HEMOGLOBIN 28.7 pg (27.0-31.0); MEAN CORPUSCULAR HGB CONC 32.4 g/dL (32.0-36.0); MEAN CORPUSCULAR VOLUME 88.5 fL (80.0-94.0); MONOCYTES # (AUTO) 0.5 10^3/uL (0.0-1.0); NEUTROPHILS # (AUTO) 3.1 10^3/uL (1.5-6.6); NEUTROPHILS % (AUTO) 48.9 %; PLT - PLATELET COUNT 230 10^3/uL (130-450); RED BLOOD COUNT 4.53 10^6/uL (4.70-6.10); RED CELL DISTRIBUTION WIDTH 11.9 % (12.0-15.0); WHITE BLOOD COUNT 6.2 x10^3/uL (4.8-10.8)
[2024-01-29 05:45] LABS: CALCIUM 8.9 mg/dL (8.5-10.3); CREATININE 0.9 mg/dL (0.6-1.3); POTASSIUM 3.8 mmol/L (3.5-4.5)
--- NOTE | 2024-01-29 07:49 | Discharge Plan ---
Discharge Plan Problem Reviewed?: Yes Disposition: Home, Self Care Condition: Good Diet: Regular Activity Restrictions: No Restrictions Shower Restrictions: No Driving Restrictions: No Instruction Topics: Obstruction Sm Bowel, Ileus Health Concerns: You were admitted with a small bowel obstruction seen on CT scan. We placed a tube into your nose and into your stomach to drain the fluid and let your GI tract rest. This quickly resolved and you were able to tolerate first clear liquids and then regular food. Since you are tolerating regular food, passing gas and have had a bowel movement you are safe to go home. It is possible for this problem to come back, but there is nothing specifically you need to do to avoid it. There is nothing you did to make it happen in the first place. I would recommend seeing a primary care doctor. [facility] has people that are available to see you and will accept your insurance. I would also recommend getting a screening colonoscopy, perhaps a bit earlier than would be recommended. Normally first screening colonoscopy is due at 45 years of age. A primary care provider can help you with this. Good job giving up substances. I also think it is great that you have been able to go without a cigarette since you have been here in the hospital and maybe this is the right time for you to stop smoking. Thank you for entrusting us with your care and we wish you well. Care Goals: establish a primary care doctor No Smoking: If you smoke, Please STOP! Call for help.
--- NOTE | 2024-01-29 07:53 | DISCHARGE SUMMARY ---
"Discharge Summary Admit Date: 01/28/24 Discharge Date: 01/29/24 Discharging Provider: Dorota Norris PA-C Primary Care Provider: none Code Status: Attempt Resuscitation Condition at Discharge: Good Discharge Disposition: 01 Home, Self Care - DIAGNOSES Admission Diagnoses: Small bowel obstruction Substance use history Discharge Diagnoses with Status of Each Condition: 1) SBO (small bowel obstruction) Impression: Resolved. On the evening of hospital day 1 NG tube was removed, diet was advanced to a regular diet. Patient tolerated a regular diet in the evening of hospital day 1 and for breakfast on hospital day 2 without abdominal pain nausea or vomiting. He continued to pass flatus and had a bowel movement prior to discharge. 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 He is enrolled in outpatient treatment program. No history of IVDU. He affirms commitment to his treatment program and sobriety with me this morning prior to discharge. (3) Tobacco dependence Impression: Half pack per day smoker. Has abstain from nicotine since admission. Smoking cessation counseling completed. Patient believes that he will abstain from cigarettes upon discharge from the hospital. - HPI History of Present Illness: From admission H&P: Mr Tran is a 43 yo M who presents for evaluation of abdominal pain. No pertinent past medical or surgical history. Onset of pain ~8 am yesterday, hist last meal was at 11 am. He has had progressive abdominal sharp/stabbing pain all day, denies any nausea or vomiting. Last BM was the day prior on 01/25, has been passing gas today. Denies any prior history of SBO, has not had any prior abdominal surgeries. Denies fevers, has cold sweats. Denies cp, sob, cough, dysuria, hematuria. Denies swelling in arms/legs. Denies headaches or dizziness. Pain is 10/10 intensity, now improving he has just received IV dilaudid. Denies alcohol use, smokes 1/2 P[employer] cigarettes. 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 - CONSULTS | PROCEDURES Consultations: General surgery, Dr Ramirez Procedures: Ct Abdomen and Pelvis: Small bowel obstruction with likely transition in the central abdomen within the ileum. Small amount of pelvic free fluid, possibly reactive. Within the chest, there is bibasilar atelectasis and scarring. These findings were reviewed with the patient and used as motivation for him to stop smoking. - HOSPITAL COURSE Hospital Course: Admitted for small bowel obstruction/ileus with abdominal pain and failure to pass flatus or bowel movements for 1 day. Patient had NG tube placed and was decompressed for a period of less than 12 hours. He began to pass flatus his diet was advanced. Prior to discharge he tolerated a general diet and passed f latus and had bowel movement. His pain was completely resolved. He was discharged home in stable condition with instructions to establish primary care within the community. - ALLERGIES Allergies/Adverse Reactions: Allergies Allergy/AdvReac Type Severity Reaction Status Date / Time No Known Drug Allergies Allergy Verified 01/28/24 00:14 - MEDICATIONS Home Medications: Ambulatory Orders Medication Instructions Recorded Confirmed No Known Home Medications 01/28/24 01/28/24 - PHYSICAL EXAM AT DISCHARGE General Appearance: positive: No acute distress Eyes Bilateral: positive: Normal inspection ENT: positive: ENT inspection nml Neck: positive: Nml inspection Respiratory: positive: Chest non-tender, No respiratory distress, Breath sounds nml Cardiovascular: positive: Regular rate & rhythm Abdomen: positive: Non-tender, Nml bowel sounds, No distention Back: positive: Nml inspection Skin: positive: Color nml Extremities: positive: Non-tender Neurologic/Psychiatric: positive: Oriented x3 - LABS Result Diagrams: 01/29/24 05:11 01/29/24 05:11 - FOLLOW UP Follow Up: establish primary care. Patient was given a list of providers in the community. - TIME SPENT Time Spent in Discharge (Minutes): 30"
[2024-01-29 08:09] VITALS: BP 106/73; O2SAT 99
== END 2024-01-29 08:35 | disposition home or self-care (01) | DRG 390 ==
LOC: ED 23:53 → MS2 01-28 04:04
PROVIDERS: ADMIT Student in an Organized Health Care Education/Training Program; ATTEND Physician Assistant Medical
DX: K56.609 Unspecified intestinal obstruction, unspecified as to partial versus complete obstruction (principal); F15.11 Other stimulant abuse, in remission; F17.210 Nicotine dependence, cigarettes, uncomplicated
CPT/HCPCS: 36415; 74177; 80048; 80053; 80306; 81003; 83690; 85025; J1170; Q9967; 81001; 87086; 96374; 96375; 99284

== ENCOUNTER 2024-02-23 16:07 | Emergency (ER) | payer MEDICAID ==
[2024-02-23 16:28] VITALS: BP 132/88; O2SAT 100
--- NOTE | 2024-02-23 16:51 | ED Physician Documentation ---
PD HPI SKIN - Stated complaint Stated Complaint: SPIDER BITE - Chief complaint Chief Complaint: Wound - History obtained from History obtained from: Patient - Additional information Additional information: 43-year-old male presents with wounds on the right medial thigh and scrotum after he states he was bit by spider a few days ago. He was certain he was bit by a large grayish spider that he thinks might have been a hobo spider. He was bit on the right medial thigh and the scrotum. The area in the right medial thigh initially drained some purulent drainage and he had been hot packing it but then it formed a blackened scab and stopped draining. He states that area of redness has actually decreased over the last several days but he was concerned that it was still present. He has not had a fever, no chills, no other symptoms today. Review of Systems Constitutional: reports: Reviewed and negative Eyes: reports: Reviewed and negative Ears: reports: Reviewed and negative Nose: reports: Reviewed and negative Throat: reports: Reviewed and negative Cardiac: reports: Reviewed and negative Respiratory: reports: Reviewed and negative GI: reports: Reviewed and negative : reports: Reviewed and negative Skin: reports: Lesions Musculoskeletal: reports: Reviewed and negative Neurologic: reports: Reviewed and negative Psychiatric: reports: Reviewed and negative Endocrine: reports: Reviewed and negative PD PAST MEDICAL HISTORY - Past Medical History Cardiovascular: Other Respiratory: None Neuro: None Endocrine/Autoimmune: None GI: None : Kidney stones HEENT: None Psych: ADD/ADHD Musculoskeletal: Chronic back pain Derm: None - Past Surgical History Past Surgical History: Yes Ortho: Arthroscopic surgery - Present Medications Home Medications: Ambulatory Orders Medication Instructions Recorded Confirmed Doxycycline [Vibramycin] 100 mg PO BID #20 tablet 02/23/24 cephALEXin [Keflex] 500 mg PO Q6H #28 cap 02/23/24 - Allergies Allergies/Adverse Reactions: Allergies Allergy/AdvReac Type Severity Reaction Status Date / Time No Known Drug Allergies Allergy Verified 02/23/24 16:20 - Social History Does the pt smoke?: Yes Smoking Status: Current every day smoker Does the pt drink ETOH?: No Does the pt have substance abuse?: No - Immunizations Immunizations are current?: Yes - POLST Patient has POLST: No PD ED PE NORMAL - Vitals Vital signs reviewed: Yes - General General: Alert and oriented X 3, No acute distress, Well developed/nourished - HEENT HEENT: Atraumatic, Moist mucous membranes - Cardiac Cardiac: RRR, No murmur, No gallop, No rub - Respiratory Respiratory: No respiratory distress, Clear bilaterally - Derm Derm: Other (2 cm area of erythema and fluctuance with overlying half centimeter round blackened scab in the right medial thigh, there is some surrounding erythema approximately 6 x 6 cm. This area was outlined. Mildly tender to touch no active drainage. No streaking erythema. There is a small pinpoint scab ) Results - Vitals Vitals: Vital Signs - 24 hr 02/23/24 16:21 Temperature 36.5 C Heart Rate 80 Respiratory 16 Rate Blood Pressure 132/88 H O2 Saturation 100 Oxygen O2 Source Room air PD Medical Decision Making - ED course Complexity details: considered differential, d/w patient ED course: 43-year-old male presented with a possible spider bite resulting in abscess in the right medial thigh as well as a small area on the mid scrotum. Patient is nontoxic, afebrile in no acute distress. Area is indurated and I recommend incision and drainage however patient declined stating he has quite a fear of needles. He would like to try hot compresses and antibiotics and understands that he needs to return if this does not work or if he has worsening symptoms such as fever or spreading erythema. There was outlined and strict return precautions given. I did discuss with patient that this standard of care would be to incise and drain this wound but we can certainly try antibiotics first per his preferences. Departure - Departure Disposition: 01 Home, Self Care Clinical Impression: Abscess Spider bite wound Qualifiers: Encounter type: initial encounter Injury intent: accidental or unintentional Qualified Code(s): T63.301A - Toxic effect of unspecified spider venom, accidental (unintentional), initial encounter Condition: Good Instructions: ED Abscess Abx Tx Only Ch Prescriptions: cephALEXin [Keflex] 500 mg PO Q6H #28 cap Doxycycline [Vibramycin] 100 mg PO BID #20 tablet Comments: Aaron, as we discussed I would recommend we drained the wound but at this time you would like to try antibiotics and hot packs only. This is reasonable, but you will definitely need to return for wound drainage if the redness spreads or you develop a fever. Please do frequent moist hot packs to help with drainage. Take both antibiotics as prescribed. Return if no improvement or worsening. [facility] Forms: PCP List
== END 2024-02-23 17:01 | disposition home or self-care (01) ==
LOC: ED 16:07
DX: T63.301A Toxic effect of unspecified spider venom, accidental (unintentional), initial encounter (principal); L02.415 Cutaneous abscess of right lower limb; F17.200 Nicotine dependence, unspecified, uncomplicated
CPT/HCPCS: 99282; 99283